=== PATIENT | female | born 2000 | race Caucasian/White ===

== ENCOUNTER 2023-03-31 23:25 | Emergency (ER) | payer OTHER, SELFPAY ==
[2023-03-31 23:33] VITALS: BP 122/80; PULSE 96; RESP 14; TEMP 36.7; O2SAT 99; BMI 31.0
[2023-03-31 23:57] LABS: MANUAL DIFF FLAG NO
[2023-03-31 23:58] LABS: Basophils Percent Auto 0.3 % (0-2); Eosinophils Absolute Auto 0.1 X10*3/uL (0.0-0.4); Eosinophils Percent Auto 0.9 % (0-4); Hematocrit 37.8 % (37.0-47.0); Hemoglobin 12.9 g/dl (12.0-16.0); Imm Gran Abs Auto 0.01 X10*3/uL (0.00-0.03); Imm Gran Pct Auto 0.2 % (0.0-0.4); Lymphocytes Absolute Auto 1.9 X10*3/uL (1.2-4.9); Lymphocytes Percent Auto 32.9 % (20-40); Mean Corpuscular HGB Conc 34.1 g/dl (31.0-35.0); Mean Corpuscular Hemoglobin 29.9 pg (27.0-33.0); Mean Corpuscular Volume 87.7 fL (80.0-98.0); Mean Platelet Volume 9.9 fL (9.4-12.3); Monocytes Absolute Auto 0.9 X10*3/uL (0.1-1.2); Monocytes Percent Auto 15.8 % (2-11); Neutrophils Absolute Auto 2.9 x10*3/uL (2.0-8.3); Neutrophils Percent Auto 49.9 % (45-73); Platelet Count 251 X10*3/uL (160-400); Red Blood Count 4.31 X10*6/uL (4.20-5.50); Red Cell Distribution Width 12.1 % (11.0-16.0); White Blood Count 5.8 X10*3/uL (4.8-10.8)
[2023-04-01 00:08] LABS: IDNOW Serial# 08D9AD1C; Strep A Nucleic Acid Negative (Negative)
[2023-04-01 00:18] LABS: Alanine Aminotransferase 77 U/L (0-31); Albumin Level 3.9 g/dL (3.5-5.0); Alkaline Phosphatase 110 U/L (39-117); Anion Gap 12 (12-20); Aspartate Amino Transferase 43 U/L (5-31); Bilirubin Total 0.8 mg/dL (0.0-1.0); Blood Urea Nitrogen 8 mg/dL (9-16); Calcium 9.3 mg/dL (8.4-10.2); Carbon Dioxide 28 mmol/L (22-29); Chloride 102 mmol/L (96-108); Creatinine Clr Calc Pharmacy 143.1; Estimated Glomerular Filt Rate > 60; Glucose Random 123 mg/dL (60-115); Potassium 3.3 mmol/L (3.3-5.1); Sodium 139 mmol/L (135-145); Total Protein 7.9 g/dL (6.5-8.0)
[2023-04-01 00:32] LABS: COVID-19 Test Negative (Negative); IDNOW Serial# BCCEAD1C
[2023-04-01 04:40] VITALS: BP 124/75; PULSE 94; RESP 18; TEMP 36.6; O2SAT 98
[2023-04-01 04:47] LABS: UPreg QC Valid YES; Urine Pregnancy NEGATIVE (NEGATIVE)
--- NOTE | 2023-04-01 05:22 | ED.FEMALEGU ---
HPI - Female Genitourinary General Chief complaint: Vaginal Bleeding Stated complaint: vaginal bleeding Time Seen by Provider: 04/01/23 04:24 History of Present Illness HPI Narrative: patient is a 22-year-old female presents today with having heavy menses for the last 3 days. Patient has been having some clots. Claims she has been changing a pad every hour. Positive lower abdominal cramping. No fever no chills. No pain on urination. Also complaining of sore throat congestion some upper respiratory symptoms. Patient's home Related Data Allergies Allergy/AdvReac Type Severity Reaction Status Date / Time No Known Allergies Allergy Verified 03/31/23 23:41 Review of Systems Review of Systems: no fever no chills no chest pain or shortness breath no nausea no vomiting positive vaginal bleeding Yes all other systems are reviewed and are negative [facility] Past Medical History Attestation statement: The following information was validated with the patient. Social History Social History Advance Directives: No Physical Exam Vital Signs: Vital Signs: Last Vital Signs Temp 97.9 F 04/01/23 04:40 Pulse 94 04/01/23 04:40 Resp 18 04/01/23 04:40 BP 124/75 04/01/23 04:40 Pulse Ox 98 04/01/23 04:40 O2 Del Method Room Air 04/01/23 04:40 BMI result Body Mass Index 31.0 Appearance: Alert. Oriented X3. No acute distress. Eyes: Pupils equal, round and reactive to light. ENT: Pharynx normal. Neck: Normal inspection. Neck supple. No lymph nodes noted. No crepitus CVS: Normal heart rate and rhythm. Pulses normal. Normal S1 and S2 Respiratory: No respiratory distress. Breath sounds normal. No Wheezing. No rales Abdomen: Soft and nontender. No rigidity. No distention. good BS x4 Pelvic exam was done with nursing present. There is no external lesion noted. No laceration noted in the vaginal vault. The cervical os was closed. There is blood noted in the vaginal vault. No adnexal tenderness elicited. Skin: Skin warm and dry. Normal skin color. Normal skin turgor. Extremities: No lower extremity edema. Neurovascular intact to all extremities. No Lacerations. No Rash Neuro: Oriented X 3. No motor deficit. No sensory deficit. Moving all extermities. No slurred speech Medical Decision Making Medical Decision Making MDM Narrative: patient's test was negative. N no evidence for related issue. Her hemoglobin is 12.9. Patient has been having heavy menstruation. Will require follow-up with railroad firer. Phone number for railroad firer was provided. Patient has coughing congestion upper respiratory symptoms. Her COVID flu RSV were all negative. She is in stable condition. Will have patient hydrate and follow up closely with OBGYN on outpatient basis. patient has not been on control. Differential Diagnosis Differential Diagnoses: The differential diagnosis associated with the presentation includes related issues, dysfunctional uterine bleeding Lab Data [facility] Lab Attestation statement: I reviewed the patient's lab results. 03/31/23 23:52 03/31/23 23:52 Labs: Lab Results 03/31/23 03/31/23 03/31/23 Range/Units 23:52 23:52 23:52 WBC 5.8 (4.8-10.8) X10*3/uL RBC 4.31 (4.20-5.50) X10*6/uL Hgb 12.9 (12.0-16.0) g/dl Hct 37.8 (37.0-47.0) % MCV 87.7 (80.0-98.0) fL MCH 29.9 (27.0-33.0) pg MCHC 34.1 (31.0-35.0) g/dl RDW 12.1 (11.0-16.0) % Plt Count 251 (160-400) X10*3/uL MPV 9.9 (9.4-12.3) fL Immature Gran % (Auto) 0.2 (0.0-0.4) % Neut % (Auto) 49.9 (45-73) % Lymph % (Auto) 32.9 (20-40) % [place] % (Auto) 15.8 H (2-11) % Eos % (Auto) 0.9 (0-4) % Baso % (Auto) 0.3 (0-2) % Lymph # (Auto) 1.9 (1.2-4.9) X10*3/uL [place] # (Auto) 0.9 (0.1-1.2) X10*3/uL Eos # (Auto) 0.1 (0.0-0.4) X10*3/uL Baso # (Auto) 0.0 (0.0-0.2) X10*3/uL Abs Immat Gran (auto) 0.01 (0.00-0.03) X10*3/uL Absolute Neuts (auto) 2.9 (2.0-8.3) x10*3/uL Absolute Nucleated RBC 0.000 (0.0-0.012) X10*3/uL Nucleated RBC % (auto) 0.0 (0.0-0.2) /100WBC Sodium 139 (135-145) mmol/L Potassium 3.3 (3.3-5.1) mmol/L Chloride 102 (96-108) mmol/L Carbon Dioxide 28 (22-29) mmol/L Anion Gap 12 (12-20) BUN 8 L (9-16) mg/dL Creatinine 0.62 (0.5-1.4) mg/dL Estim Creat Clear Calc 143.1 Estimated GFR > 60 Random Glucose 123 H (60-115) mg/dL Calcium 9.3 (8.4-10.2) mg/dL Total Bilirubin 0.8 (0.0-1.0) mg/dL AST 43 H (5-31) U/L ALT 77 H (0-31) U/L Alkaline Phosphatase 110 (39-117) U/L Total Protein 7.9 (6.5-8.0) g/dL Albumin 3.9 (3.5-5.0) g/dL Urine Test (NEGATIVE) COVID-19 (LAUREN) Negative (Negative) COVID-19 Clin Com See Note S. pyogenes GrpA TIMA (Negative) 03/31/23 04/01/23 Range/Units 23:52 04:39 WBC (4.8-10.8) X10*3/uL RBC (4.20-5.50) X10*6/uL Hgb (12.0-16.0) g/dl Hct (37.0-47.0) % MCV (80.0-98.0) fL MCH (27.0-33.0) pg MCHC (31.0-35.0) g/dl RDW (11.0-16.0) % Plt Count (160-400) X10*3/uL MPV (9.4-12.3) fL Immature Gran % (Auto) (0.0-0.4) % Neut % (Auto) (45-73) % Lymph % (Auto) (20-40) % [place] % (Auto) (2-11) % Eos % (Auto) (0-4) % Baso % (Auto) (0-2) % Lymph # (Auto) (1.2-4.9) X10*3/uL [place] # (Auto) (0.1-1.2) X10*3/uL Eos # (Auto) (0.0-0.4) X10*3/uL Baso # (Auto) (0.0-0.2) X10*3/uL Abs Immat Gran (auto) (0.00-0.03) X10*3/uL Absolute Neuts (auto) (2.0-8.3) x10*3/uL Absolute Nucleated RBC (0.0-0.012) X10*3/uL Nucleated RBC % (auto) (0.0-0.2) /100WBC Sodium (135-145) mmol/L Potassium (3.3-5.1) mmol/L Chloride (96-108) mmol/L Carbon Dioxide (22-29) mmol/L Anion Gap (12-20) BUN (9-16) mg/dL Creatinine (0.5-1.4) mg/dL Estim Creat Clear Calc Estimated GFR Random Glucose (60-115) mg/dL Calcium (8.4-10.2) mg/dL Total Bilirubin (0.0-1.0) mg/dL AST (5-31) U/L ALT (0-31) U/L Alkaline Phosphatase (39-117) U/L Total Protein (6.5-8.0) g/dL Albumin (3.5-5.0) g/dL Urine Test NEGATIVE (NEGATIVE) COVID-19 ([facility]EN) (Negative) COVID-19 Clin Com S. pyogenes GrpA TIMA Negative (Negative) Discharge Plan Discharge Clinical Impression: Vaginal bleeding Patient Disposition: Home, Self-Care Instructions: Dysfunctional Uterine Bleeding (ED) Referrals: Jose Jones MD [Physician] - 04/02/23 Stand Alone Forms: Work/School Release
[2023-04-01 05:53] VITALS: BP 120/78; PULSE 88; RESP 18; TEMP 36.9; O2SAT 99
--- NOTE | 2023-04-01 05:57 | PC.NURSE ---
patient in the process of being discharged patient is aware and patient will be given all paperwork
== END 2023-04-01 06:02 | disposition home or self-care (01) ==
PROVIDERS: Emergency Provider Emergency Medicine Emergency Medical Services; PCP Hospitalist
DX: N93.9 Abnormal uterine and vaginal bleeding, unspecified (principal); J02.9 Acute pharyngitis, unspecified; Z20.822 Contact with and (suspected) exposure to COVID-19
CPT/HCPCS: 36415; 80053; 81025; 85025; 87635; 87651; 99283; 99284

== ENCOUNTER 2023-05-09 09:23 | Outpatient (AMB) | payer OTHER, SELFPAY ==
--- NOTE | 2023-05-09 09:40 | MHC.OFFVIS ---
Intake Vital Signs 05/09/23 09:43 Height 5 ft 3 in Weight 174 lb 2.643 oz BMI 30.8 BP 118/74 Intake Visit Reasons: ER Follow up Intake Note: Heavy menses Physicist [place] Required: No Information Interpreted: non-clinical & clinical Print Shop Helper: Print Shop Helper Present (Idalia MONTE) Accompanied by: Self / Same As Patient Allergies No Known Allergies Allergy (Verified 05/09/23 09:44) Is last menstrual period known: Yes Last menstrual period: 05/06/23 HPI HPI Comments History of Present Illness Details Presenting complaining with irregular vaginal bleeding associated with passage of blood clots and pelvic cramping. No hair growth or nipple discharge. No previous Pap smear [facility] Social History Alcohol intake: never Patient Tobacco Use Status: Never used Tobacco Female Reproductive History Menstrual Date of last menstrual period: 05/06/23 Review of Systems Const All systems reviewed & are unremarkable except as noted in HPI and below Card Reports as per HPI Resp Reports as per HPI GI Reports as per HPI and Reports no additional complaints Reports as per HPI Physical Exam Vital Signs: Last Vital Signs BP 118/74 05/09/23 09:43 BMI result Body Mass Index 30.8 Const General: cooperative, healthy appearing and comfortable Chest Chest palpation & inspection: normal inspection of the chest and normal palpation of entire chest wall Breast/axilla inspection: normal inspection of the breasts and normal inspection of the axillae Breast/axilla palpation: normal palpation of the breasts, normal palpation of the axillae and no axillary lymphadenopathy Resp Effort & Inspection: normal respiratory effort Auscultation: clear to auscultation bilaterally Percussion: percussion normal Cardio Palpation: normal PMI Rate: regular rate Rhythm: regular rhythm Heart sounds: no murmurs and no rubs Peripheral pulses: Peripheral pulses 2+ throughout GI Inspection: Yes normal to inspection Palpation (GI): Soft to palpation, nontender, no guarding, not rigid and No hepatosplenomegaly present Percussion: Yes normal to percussion Auscultation: normal bowel sounds Rectal Exam - Female: deferred General: Yes bladder normal to palpation External Female Exam: No lesion Speculum Exam - Vagina: normal appearance of the vagina, normal palpation, normal vaginal discharge and not erythematous Speculum Exam - Cervix: normal appearance of the cervix and normal palpation Bimanual exam- vagina & uterus: normal bimanual exam, normal palpation, uterine size normal, bladder normal to palpation, consistency normal and normal palpation Bimanual Exam- Adnexa, other: normal adnexae, no masses and no tenderness Assessment & Plan Assessment & Plan (1) Abnormal uterine bleeding (AUB): Code(s): N93.9 - Abnormal uterine and vaginal bleeding, unspecified Plan: Pap smear done, GC and chlamydia taken CBC, TSH, HCG, and pelvic ultrasound ordered. Discussed with the patient the different causes of abnormal bleeding including thyroid disorders, ovarian pathology. Discussed with the patient the work up including CBC (to r/o anemia), TSH, pelvic Ultrasound. All questions answered and the patient verbalized understanding. Instructed the patient to schedule an appointment for follow-up in 2 weeks. Coding Level of Care Code New Pt Level 3 (85113) Diagnoses Abnormal uterine bleeding (AUB) N93.9
[2023-05-09 09:43] VITALS: BP 118/74; BMI 30.8
== END 2023-05-09 11:30 | disposition home or self-care (01) ==
LOC: HO.HWS 09:23
PROVIDERS: PCP Hospitalist; Visit Provider Obstetrics & Gynecology
DX: N93.9 Abnormal uterine and vaginal bleeding, unspecified (principal)
CPT/HCPCS: 99203

== ENCOUNTER → 2023-05-09 09:23 | Outpatient (BNVA) | payer OTHER, SELFPAY | PROVIDERS: PCP Hospitalist; Visit Provider Obstetrics & Gynecology | DX: N93.9 Abnormal uterine and vaginal bleeding, unspecified (principal) | CPT/HCPCS: 99202 ==

== ENCOUNTER 2023-05-09 17:22 | Outpatient (REF) | payer OTHER, SELFPAY ==
[2023-05-10 03:07] LABS: CT PCR NOT DETECTED (Not Detect.); NG PCR NOT DETECTED (Not Detect.)
== END 2023-05-09 17:23 | disposition home or self-care (01) ==
LOC: HO.LNP 17:22
PROVIDERS: Visit Provider Obstetrics & Gynecology
DX: Z12.4 Encounter for screening for malignant neoplasm of cervix (principal); N93.9 Abnormal uterine and vaginal bleeding, unspecified
CPT/HCPCS: 0353U; 88142

== ENCOUNTER 2023-05-20 15:04 | Outpatient (REF) | payer OTHER, SELFPAY ==
--- NOTE | ~2023-05-20 | US_ITS ---
EXAMINATION: US PELVIS CLINICAL INFORMATION: Abnormal uterine bleeding; the last menstrual period was 2 weeks prior. COMPARISON: None available. TECHNIQUE: Ultrasound of the pelvis is performed using both transabdominal and transvaginal transducers along with Doppler. Transvaginal imaging is performed due to inadequate visualization transabdominally. FINDINGS: Uterus: The uterus is retroverted and retroflexed. The uterus measures 7.8 x 2.6 x 3.7 cm. The double wall endometrial thickness is 1.0 mm. The uterus is smooth in contour and has normal myometrial echogenicity. No visible fibroid. Nabothian cysts are seen within the cervix. Adnexa: Both ovaries are visualized. There is normal color flow to the adnexa. There is no ovarian torsion. Right ovary measures 3.3 x 2.0 x 1.8 cm, volume 6.2 mL. There is a small amount of free fluid adjacent to the right ovary. Left ovary measures 2.8 x 1.9 x 2.9 cm, volume 8.1 mL. US/US pelvic and transvaginal IMPRESSION: 1. There is a small amount nonspecific free fluid adjacent to the right ovary. 2. Nabothian cysts are seen within the cervix.
== END 2023-05-20 15:05 | disposition home or self-care (01) ==
LOC: HO.US 15:04
PROVIDERS: PCP Hospitalist; Visit Provider Obstetrics & Gynecology
DX: N93.9 Abnormal uterine and vaginal bleeding, unspecified (principal)
CPT/HCPCS: 76830; 76856

== ENCOUNTER 2023-09-18 09:10 | Outpatient (REF) | payer OTHER, SELFPAY ==
[2023-09-18 10:27] LABS: Hematocrit 40.7 % (37.0-47.0); Hemoglobin 13.6 g/dl (12.0-16.0); Mean Corpuscular HGB Conc 33.4 g/dl (31.0-35.0); Mean Corpuscular Hemoglobin 30.2 pg (27.0-33.0); Mean Corpuscular Volume 90.4 fL (80.0-98.0); Mean Platelet Volume 10.2 fL (9.4-12.3); Platelet Count 362 X10*3/uL (160-400); Red Cell Distribution Width 12.3 % (11.0-16.0); White Blood Count 4.8 X10*3/uL (4.8-10.8)
[2023-09-18 11:31] LABS: HCG Quantitative < 2 mIU/mL; TSH reflex Free T4 3.79 uIU/mL (0.32-4.0)
[2023-09-19 11:59] LABS: Prolactin 14.9 ng/mL
== END 2023-09-18 09:11 | disposition home or self-care (01) ==
LOC: HO.LAB 09:10
PROVIDERS: PCP Hospitalist; Visit Provider Obstetrics & Gynecology
DX: N93.9 Abnormal uterine and vaginal bleeding, unspecified (principal)
CPT/HCPCS: 36415; 84146; 84443; 84702; 85027; 99212

== ENCOUNTER 2023-09-18 09:10 | Outpatient (AMB) | payer OTHER, SELFPAY ==
--- NOTE | 2023-09-18 09:23 | MHC.OFFVIS ---
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 CBC, TSH, prolactin hCG were not done. GC/chlamydia were negative Pap smear was negative Pelvic ultrasound was unremarkable [facility] Social History Alcohol intake: never Patient Tobacco Use Status: Never used Tobacco Review of Systems Const All systems reviewed & are unremarkable except as noted in HPI and below Reports as per HPI and Reports no additional complaints GI Reports no additional complaints Reports no additional complaints Physical Exam Vital Signs: Last Vital Signs BP 122/76 09/18/23 09:25 BMI result Body Mass Index 30.8 Assessment & Plan Assessment & Plan (1) Abnormal uterine bleeding (AUB): Code(s): N93.9 - Abnormal uterine and vaginal bleeding, unspecified Plan: Instructions given the patient to have her blood work done raymundo. Discussed with the patient the results of the ultrasound, GC/chlamydia and Pap smear. Options of treatment were discussed with the P including control pills and cyclic progesterone. All pros and cons, risks and benefits of each were discussed with the patient, the patient decided to proceed with cyclic progesterone, so a more detailed discussion re: Progesterone treatment including mechanism of action, benefits (regular menses, endometrial protection form unopposed estrogen and reduction in the risk of endometrial hyperplasia and/or cancer ...), risks (Thrombosis, mood changes, weight gain, breast soreness, ? increased breast ca, others). Instructions were given to use a back- up method for contraception since this is not a method control, and schedule a 3 month follow-up up; the patient verbalized understanding and agreed with the plan. Medications: New progesterone micronized (Prometrium) Take the pill 1 tablet a day cyclically every month from day 15-24 day 1 being the 1st day of next menstrual cycle 200 mg PO BEDTIME 10 days 30 caps 0RF Coding Level of Care Code Est Pt Level 3 (97617) Diagnoses Abnormal uterine bleeding (AUB) N93.9
[2023-09-18 09:25] VITALS: BP 122/76; BMI 30.8
== END 2023-09-18 09:41 | disposition home or self-care (01) ==
PROVIDERS: PCP Hospitalist; Visit Provider Obstetrics & Gynecology
DX: N93.9 Abnormal uterine and vaginal bleeding, unspecified (principal)
CPT/HCPCS: 99213